=== PATIENT | female | born 1990 | race African-American/Black ===

== ENCOUNTER 2019-04-03 21:10 | Emergency (ER) | payer SELFPAY ==
[~2019-04-03] VITALS: Ht 157.5 cm; Wt 49.0 kg
[2019-04-03 22:56] LABS: CLARITY URINE CLEAR (CLEAR); COLOR URINE YELLOW (YELLOW); KETONES URINE NEGATIVE (NEGATIVE); LEUKOCYTE ESTERASE URINE NEGATIVE (NEGATIVE); NITRITE URINE NEGATIVE (NEGATIVE); OCCULT BLOOD URINE 3+ (NEGATIVE); PROTEIN URINE NEGATIVE (NEGATIVE); SPECIFIC GRAVITY URINE 1.026 (1.005-1.030)
[2019-04-04 05:33] LABS: BASOPHILS % 0.3 % (0.0-2.0); EOSINOPHILS % 0.6 % (0.0-5.0); HEMATOCRIT. 35.3 % (36.0-48.0); HEMOGLOBIN. 12.1 g/dL (12.0-16.0); LYMPHOCYTES % 17.1 % (20.0-50.0); MEAN CORPUSCULAR HEMOGLOBIN 31.1 pg (28.0-32.0); MEAN CORPUSCULAR VOLUME 90.5 fL (81.0-99.0); MONOCYTES % 5.4 % (2.0-8.0); NEUTROPHILS % 76.6 % (40.0-76.0); PLATELET 252 x1000/uL (130-400); RED CELL DISTRIBUTION WIDTH 13.2 % (11.6-14.6)
[2019-04-04 05:39] LABS: CHLORIDE 106 mEq/L (98-107)
[2019-04-04 05:49] LABS: HCG SCREEN NEGATIVE
[2019-04-04 05:51] LABS: INR 1.1; PROTHROMBIN TIME 11.1 sec (9.6-11.0)
[2019-04-04] MEDS ORDERED: IBUPROFEN 400MG TABLET PO ONE (07:30)
[2019-04-04] MEDS ORDERED: ONDANSETRON 4MG ODT PO ONE (07:30)
[2019-04-04 08:10] VITALS: BP 110/84
== END 2019-04-04 08:10 | disposition home or self-care (01) ==
LOC: ER 21:10
DX: R25.2 Cramp and spasm (principal); J45.909 Unspecified asthma, uncomplicated; F12.10 Cannabis abuse, uncomplicated; Z98.890 Other specified postprocedural states
CPT/HCPCS: 36415; 80053; 81003; 81025; 83690; 84703; 85025; 85610; 99283; Q0162